=== PATIENT | male | born 1955 | race Caucasian/White ===

== ENCOUNTER → 2016-12-02 | Outpatient (CLI) | payer OTHER ==
--- NOTE | 2016-12-02 16:16 | CT ---
EXAMINATION TYPE: CT iac w con DATE OF EXAM: 12/02/2016 3:55 PM COMPARISON: NONE HISTORY: Right ear drainage x [address] DLP: 142.70 mGycm Automated exposure control for dose reduction was used. CONTRAST: CT scan of the IACs is performed with IV Contrast, patient injected with 100 mL of Omnipaque 300. FINDINGS: The middle ear ossicles demonstrate evidence of surrounding soft tissue density which may reflect cholesteatoma left greater than right. Ossicular chains appear to be grossly intact bilateral ly. Soft tissue extends into the attic on the left and to a much lesser extent on the right. The scut um is preserved bilaterally. There is thickening of the bilateral tympanic membranes right greater th an left. Tubelike structure is noted on the right. Correlate for tube insertion. There is near compl ete opacification of the left-sided mastoid air cells compatible with a moderate chronic mastoiditis with bone resorption noted. Right-sided mastoid air cells are poorly pneumatized with mild opacificat ion seen and no evidence for osseous destruction. The cochlea and the semicircular canals are symmetr ic and unremarkable. Vestibular aqueduct and internal carotid canal appear unremarkable. Temporoman dibular joints are maintained bilaterally. IMPRESSION: 1. Findings felt to reflect bilateral cholesteatoma left greater than right. 2. Thickening of the tympanic membranes right greater than left with tubelike structure. Correlate cl inically. 3. Chronic mastoiditis left much greater than right.
== END | disposition home or self-care (01) ==
LOC: RADCTMAIN 15:22
PROVIDERS: ATTEND Nurse Practitioner Family
DX: H70.13 Chronic mastoiditis, bilateral (principal)
CPT/HCPCS: 70481; Q9967

== ENCOUNTER 2025-01-05 21:10 | Emergency (ER) | payer MEDICARE, OTHER ==
[2025-01-05 21:20] VITALS: TEMP 97.7
--- NOTE | 2025-01-05 21:32 | ED ---
Abdominal Pain HPI - General Chief Complaint: Abdominal Pain Stated Complaint: abd pain Time Seen by Provider: 01/05/25 21:28 Source: patient, RN notes reviewed, old records reviewed Mode of arrival: ambulatory Limitations: no limitations - History of Present Illness Initial Comments: This is a 69-year-old female with 4 hours of sudden onset abdominal pain suprapubic diffuse abdominal pain across the anterior abdomen generalized tenderness patient cannot really say comfortable feels like his abdomen is distended and tight. No history of abdominal surgery positive colonoscopy without significant abnormal findings. Patient has not had a bowel movement since pain started no nausea vomiting, initially felt sweaty but without fever MD Complaint: abdominal pain -: hour(s) (4) Location: periumbilical, suprapubic Radiation: suprapubic Migration to: suprapubic Severity: severe Quality: cramping, aching, fullness Consistency: constant, intermittent Worsens With: nothing Associated Symptoms: nausea, other (0) Treatments Prior to Arrival: other (0) - Related Data Allergies Allergy/AdvReac Type Severity Reaction Status Date / Time No Known Allergies Allergy Verified 01/05/25 21:19 Review of Systems ROS Statement: Those systems with pertinent positive or pertinent negative responses have been documented in the HPI. ROS Other: All systems not noted in ROS Statement are negative. Past Medical History Past Medical History: No Reported History History of Any Multi-Drug Resistant Organisms: None Reported Past Surgical History: Orthopedic Surgery Past Psychological History: No Psychological Hx Reported Smoking Status: Never smoker Past Alcohol Use History: Occasional Past Drug Use History: Marijuana General Exam Limitations: no limitations General appearance: alert, in no apparent distress Head exam: Present: atraumatic, normocephalic, normal inspection Eye exam: Present: normal appearance, PERRL, EOMI. Absent: scleral icterus, conjunctival injection, periorbital swelling ENT exam: Present: normal exam, mucous membranes moist Neck exam: Present: normal inspection. Absent: tenderness, meningismus, lymphadenopathy Respiratory exam: Present: normal lung sounds bilaterally. Absent: respiratory distress, wheezes, rales, rhonchi, stridor Cardiovascular Exam: Present: regular rate, normal rhythm, normal heart sounds. Absent: systolic murmur, diastolic murmur, rubs, gallop, clicks GI/Abdominal exam: Present: distended, tenderness, guarding, normal bowel sounds. Absent: rebound, rigid Extremities exam: Present: normal inspection, full ROM, normal capillary refill. Absent: tenderness, pedal edema, joint swelling, calf tenderness Back exam: Present: normal inspection Neurological exam: Present: alert, oriented X3, CN II-XII intact Psychiatric exam: Present: normal affect, normal mood Skin exam: Present: warm, dry, intact, normal color. Absent: rash Course Vital Signs 01/05/25 01/06/25 21:16 00:30 Temperature 97.7 F Pulse Rate 86 66 Respiratory 18 16 Rate Blood Pressure 134/78 127/79 O2 Sat by Pulse 98 95 Oximetry - Reevaluation(s) Reevaluation #1: 01/05/25 21:53 Medical records reviewed Prior ER visits for no abdominal pain no significant abdominal surgery history Reevaluation #2: 01/06/25 01:02 Patient symptoms improved here in the ER Reevaluation #3: 01/06/25 01:02 Patient informed of results questions answered Reevaluation #4: Was pt. sent in by a medical professional or institution (, PA, CONCRETE BUILDINGS ASSEMBLER, urgent care, hospital, or halfway...) When possible be specific @ -no Did you speak to anyone other than the patient for history (EMS, parent, family, police, friend...)? What history was obtained from this source @ -no Did you review nursing and triage notes (agree or disagree)? Why? @ -agree Are old charts reviewed (outside hosp., previous admission, EMS record, old EKG, old radiological studies, urgent care reports/EKG's, halfway records)? Report findings @ -yes Differential Diagnosis (chest pain, altered mental status, abdominal pain women, abdominal pain men, vaginal bleeding, weakness, fever, dyspnea, syncope, headache, dizziness, GI bleed, back pain, seizure, CVA, palpatations, mental health, musculoskeletal)? @ -prior EKG interpreted by me (3pts min.). @ -yes X-rays interpreted by me (1pt min.). @ -yes negative for acute disease CT interpreted by me (1pt min.). @ -no U/S interpreted by me (1pt. min.). @ -no What testing was considered but not performed or refused? (CT, X-rays, U/S, labs)? Why? @ -none What meds were considered but not given or refused? Why? @ -none Did you discuss the management of the patient with other professionals (professionals i.e. , PA, CONCRETE BUILDINGS ASSEMBLER, lab, RT, psych nurse, social welfare administrator, casting machine control board operator, teacher, assurance officer, family caseworker)? Give summary @ -no Was smoking cessation discussed for >3mins.? @ -no Was critical care preformed (if so, how long)? @ -no Were there social determinants of health that impacted care today? How? (Homelessness, low income, unemployed, alcoholism, drug addiction, trans portation, low edu. Level, literacy, decrease access to med. care, fdc, rehab)? @ -none Was there de-escalation of care discussed even if they declined (Discuss DNR or withdrawal of care, Hospice)? DNR status @ -no What co-morbidities impacted this encounter? (DM, HTN, Smoking, COPD, CAD, Cancer, CVA, ARF, Chemo, Hep., AIDS, mental health diagnosis, sleep apnea, morbid obesity)? @ -none Was patient admitted / discharged? Hospital course, mention meds given and route, prescriptions, significant lab abnormalities, going to OR and other pertinent info. @ - Undiagnosed new problem with uncertain prognosis? @ -no Drug Therapy requiring intensive monitoring for toxicity (Heparin, Nitro, Ins ulin, Cardizem)? @ -no Were any procedures done? @ -no Diagnosis/symptom? @ - Acute, or Chronic, or Acute on Chronic? @ -Acute Uncomplicated (without systemic symptoms) or Complicated (systemic symptoms)? @ -Complicated Side effects of treatment? @ -no Exacerbation, Progression, or Severe Exacerbation? @ -exacerbation Poses a threat to life or bodily function? How? (Chest pain, USA, MT, pneumonia, PE, COPD, DKA, ARF, appy, cholecystitis, CVA, Diverticulitis, Homicidal, Suicidal, threat to staff... and all critical care pts) @ -yes Reevaluation #5: Differential Abdominal Pain Men: Appendicitis, cholecystitis, diverticulosis, ischemic bowel, pancreatitis, hep atitis, UTI, gastroenteritis, AAA, incarcerated hernia, bowel obstruction, constipation, inflammatory bowel, hepatitis, peptic ulcer disease, splenic infarction, perforated viscus, testicular torsion, this is not meant to be an all-inclusive list Medical Decision Making - Medical Decision Making 69 male to the ED co AYSE aviles found to have colitis, for discharge home will t tolerate liquid diet pain control and nausea medications and can be discharged - Lab Data Result diagrams: 01/05/25 22:18 01/05/25 22:18 Lab Results 01/05/25 01/05/25 01/05/25 Range/Units 22:18 22:18 22:18 WBC 19.9 H (3.8-10.6) k/uL RBC 4.96 (4.30-5.90) m/uL Hgb 14.4 (13.0-17.5) gm/dL Hct 46.6 (39.0-53.0) % MCV 93.9 (80.0-100.0) fL MCH 29.0 (25.0-35.0) pg MCHC 30.9 L (31.0-37.0) g/dL RDW 13.4 (11.5-15.5) % Plt Count 460 H (150-450) k/uL MPV 7.9 Neutrophils % 92 % Lymphocytes % 4 % Monocytes % 2 % Eosinophils % 1 % Basophils % 0 % Neutrophils # 18.3 H (1.3-7.7) k/uL Lymphocytes # 0.8 L (1.0-4.8) k/uL Monocytes # 0.5 (0-1.0) k/uL Eosinophils # 0.1 (0-0.7) k/uL Basophils # 0.1 (0-0.2) k/uL PT 11.1 (10.0-12.5) sec INR 1.0 (<1.2) APTT 24.2 (22.0-30.0) sec Sodium 137 (137-145) mmol/L Potassium 4.5 (3.5-5.1) mmol/L Chloride 103 (98-107) mmol/L Carbon Dioxide 23 (22-30) mmol/L Anion Gap 11 mmol/L BUN 27 H (9-20) mg/dL Creatinine 0.92 (0.66-1.25) mg/dL Est GFR (CKD-EPI)AfAm >90 (>60 ml/min/1.73 sqM) Est GFR (CKD-EPI)NonAf 84 (>60 ml/min/1.73 sqM) Glucose 183 H (74-99) mg/dL Plasma Lactic Acid Devin (0.7-2.0) mmol/L Calcium 9.5 (8.4-10.2) mg/dL Phosphorus 4.1 (2.5-4.5) mg/dL Magnesium 1.9 (1.6-2.3) mg/dL Total Bilirubin 0.5 (0.2-1.3) mg/dL AST 22 (17-59) U/L ALT 19 (4-49) U/L Alkaline Phosphatase 76 (38-126) U/L Troponin I (0.000-0.034) ng/mL Total Protein 7.4 (6.3-8.2) g/dL Albumin 4.4 (3.5-5.0) g/dL Amylase 62 (30-110) U/L Lipase 62 (23-300) U/L 01/05/25 01/05/25 Range/Units 22:18 22:18 WBC (3.8-10.6) k/uL RBC (4.30-5.90) m/uL Hgb (13.0-17.5) gm/dL Hct (39.0-53.0) % MCV (80.0-100.0) fL MCH (25.0-35.0) pg MCHC (31.0-37.0) g/dL RDW (11.5-15.5) % Plt Count (150-450) k/uL MPV Neutrophils % % Lymphocytes % % Monocytes % % Eosinophils % % Basophils % % Neutrophils # (1.3-7.7) k/uL Lymphocytes # (1.0-4.8) k/uL Monocytes # (0-1.0) k/uL Eosinophils # (0-0.7) k/uL Basophils # (0-0.2) k/uL PT (10.0-12.5) sec INR (<1.2) APTT (22.0-30.0) sec Sodium (137-145) mmol/L Potassium (3.5-5.1) mmol/L Chloride (98-107) mmol/L Carbon Dioxide (22-30) mmol/L Anion Gap mmol/L BUN (9-20) mg/dL Creatinine (0.66-1.25) mg/dL Est GFR (CKD-EPI)AfAm (>60 ml/min/1.73 sqM) Est GFR (CKD-EPI)NonAf (>60 ml/min/1.73 sqM) Glucose (74-99) mg/dL Plasma Lactic Acid Devin 1.8 (0.7-2.0) mmol/L Calcium (8.4-10.2) mg/dL Phosphorus (2.5-4.5) mg/dL Magnesium (1.6-2.3) mg/dL Total Bilirubin (0.2-1.3) mg/dL AST (17-59) U/L ALT (4-49) U/L Alkaline Phosphatase (38-126) U/L Troponin I <0.012 (0.000-0.034) ng/mL Total Protein (6.3-8.2) g/dL Albumin (3.5-5.0) g/dL Amylase (30-110) U/L Lipase (23-300) U/L - Radiology Data Radiology results: report reviewed (CT abd pelvis positive for colitis), image reviewed Disposition Clinical Impression: Abdominal pain, Colitis Disposition: HOME SELF-CARE Condition: Good Instructions (If sedation given, give patient instructions): Colitis (ED) Is patient prescribed a controlled substance at d/c from ED?: No Referrals: Loretta Lewis, PAC [Family Provider] - 1-2 days Time of Disposition: 01:00
[2025-01-05] MEDS: SODIUM CHLORIDE 0.9% 1,000 ML IV ONE (22:20)
[2025-01-05] MEDS: HYDROmorphone 1 MG/ML 1 ML SYRINGE IVP STA (22:21)
[2025-01-05] MEDS: ONDANSETRON 4 MG/2 ML VIAL IVP STA (22:21)
[2025-01-05 22:51] LABS: Basophils # (A) 0.1 k/uL (0-0.2); Basophils % (A) 0 %; Eosinophils # (A) 0.1 k/uL (0-0.7); Eosinophils % (A) 1 %; HCT 46.6 % (39.0-53.0); HGB 14.4 gm/dL (13.0-17.5); Lymphocytes # (A) 0.8 k/uL (1.0-4.8); Lymphocytes % (A) 4 %; MCHC 30.9 g/dL (31.0-37.0); MCV 93.9 fL (80.0-100.0); Mean Platelet Volume 7.9; Monocytes # (A) 0.5 k/uL (0-1.0); Monocytes % (A) 2 %; Neutrophils # (A) 18.3 k/uL (1.3-7.7); Neutrophils % (A) 92 %; Platelet Count 460 k/uL (150-450); RBC 4.96 m/uL (4.30-5.90); RDW 13.4 % (11.5-15.5); WBC 19.9 k/uL (3.8-10.6)
[2025-01-05 23:09] LABS: Partial Thromboplastin Time 24.2 sec (22.0-30.0); Prothrombin Time 11.1 sec (10.0-12.5)
[2025-01-05 23:12] LABS: ALT 19 U/L (4-49); AST 22 U/L (17-59); African American GFR (CKD) >90 (>60 ml/min/1.73 sqM); Albumin 4.4 g/dL (3.5-5.0); Alkaline Phosphatase 76 U/L (38-126); Amylase 62 U/L (30-110); Anion Gap 11 mmol/L; Blood Urea Nitrogen 27 mg/dL (9-20); Calcium 9.5 mg/dL (8.4-10.2); Carbon Dioxide 23 mmol/L (22-30); Chloride 103 mmol/L (98-107); Glucose 183 mg/dL (74-99); Lipase 62 U/L (23-300); Magnesium 1.9 mg/dL (1.6-2.3); Non-African American GFR(CKD) 84 (>60 ml/min/1.73 sqM); Phosphorus 4.1 mg/dL (2.5-4.5); Potassium 4.5 mmol/L (3.5-5.1); Sodium 137 mmol/L (137-145); Total Bilirubin 0.5 mg/dL (0.2-1.3); Total Protein 7.4 g/dL (6.3-8.2)
[2025-01-06] MEDS: HYDROmorphone 1 MG/ML 1 ML SYRINGE IVP STA (00:33)
--- NOTE | 2025-01-06 00:45 | CT ---
EXAM: CT Abdomen and Pelvis With Intravenous Contrast CLINICAL HISTORY: ITS.REASON CT Reason: pain TECHNIQUE: Axial computed tomography images of the abdomen and pelvis with intravenous contrast. CTDI is 13.2 mGy and DLP is 654.1 mGy-cm. This CT exam was performed using one or more of the following dose reduction techniques: automated exposure control, adjustment of the mA and/or kV according to patient size, and/or use of iterative reconstruction technique. COMPARISON: No relevant prior studies available. FINDINGS: Lung bases: Atelectasis at the lung bases. Mediastinum: Small hiatal hernia. ABDOMEN: Liver: Unremarkable. No mass. Gallbladder and bile ducts: Unremarkable. No calcified stones. No ductal dilation. Pancreas: Unremarkable. No mass. No ductal dilation. Spleen: Unremarkable. No splenomegaly. Adrenals: Unremarkable. No mass. Kidneys and ureters: Unremarkable. No solid mass. No hydronephrosis. Stomach and bowel: Wall thickening of the descending colon and proximal sigmoid colon, with pericolonic fat stranding, consistent with colitis. No obstruction. PELVIS: Appendix: No findings to suggest acute appendicitis. Bladder: Unremarkable. No mass. Reproductive: Small bilateral testicular hydroceles. ABDOMEN and PELVIS: Intraperitoneal space: Unremarkable. No free air. No significant fluid collection. Bones/joints: Degenerative changes of the spine. No acute fracture. No dislocation. Soft tissues: Unremarkable. Vasculature: Atherosclerotic changes of the aorta. No abdominal aortic aneurysm. Lymph nodes: Unremarkable. No enlarged lymph nodes. IMPRESSION: Wall thickening of the descending colon and proximal sigmoid colon, with pericolonic fat stranding, consistent with colitis.
[2025-01-06 01:04] LABS: Appearance,Urine Clear (Clear); Bacteria,Urine Rare /hpf; Bilirubin,Urine Negative (Negative); Blood,Urine Negative (Negative); Budding Yeast,Urine Rare /hpf; Color,Urine Yellow; Glucose,Urine (UA) Negative (Negative); Ketones,Urine Negative (Negative); Leukocyte Esterase,Urine Small (Negative); Nitrite,Urine Negative (Negative); Protein,Urine Negative (Negative); RBC,Urine 2 /hpf (0-5); Squamous Epithelial Cell,Urine <1 /hpf (0-4); Urobilinogen,Urine <2.0 mg/dL (<2.0); WBC,Urine 3 /hpf (0-5)
[2025-01-06] MEDS: ONDANSETRON 4 MG ODT STARTER PACK 2 TAB BTL PO STA (01:12)
[2025-01-06] MEDS: ONDANSETRON 4 MG/2 ML VIAL IVP STA (01:12)
[2025-01-06] MEDS: traMADol 50 MG STARTER PACK 3 TAB BTL PO STA (01:12)
[2025-01-06 01:23] VITALS: BP 152/94; PULSE 93; RESP 19
[2025-01-06 01:28] LABS: Specific Gravity,Urine >1.050 (1.001-1.035)
== END 2025-01-06 01:23 | disposition home or self-care (01) ==
LOC: EC 21:10
DX: K52.9 Noninfective gastroenteritis and colitis, unspecified (principal)
CPT/HCPCS: 80053; 82150; 83605; 83690; 83735; 84100; 84484; 85025; 85610; 85730; 74177; 99284; 96374; 96375; 96361 ×2; 96376 ×2; J2405; J1171; Q9967; 36415; 81001

== ENCOUNTER → 2025-02-20 | Outpatient (CLI) | payer MEDICARE ==
[2025-02-20 11:27] LABS: African American GFR (CKD) >90 (>60 ml/min/1.73 sqM); Blood Urea Nitrogen 16 mg/dL (9-20); Non-African American GFR(CKD) 89 (>60 ml/min/1.73 sqM)
--- NOTE | 2025-02-20 12:47 | CT ---
EXAMINATION TYPE: CT abdomen pelvis w con CT DLP: 436.60 mGycm, Automated exposure control for dose reduction was used. DATE OF EXAM: 02/20/2025 12:36 PM COMPARISON: CT abdomen and pelvis 01/05/2025 CLINICAL INDICATION:Male, 69 years old with history of R10.11 RUQ pain; RUQ pain hx of colitis. TECHNIQUE: Standard CT of the abdomen and pelvis following the administration of 100 cc of Isovue 3 00 IV contrast material and oral contrast. Coronal and sagittal reformats were performed. FINDINGS: LOWER CHEST: Posterior dependent subsegmental atelectasis is noted. Right gynecomastia with possible partially visualized left gynecomastia. ABDOMEN LIVER: Unremarkable GALLBLADDER AND BILE DUCTS: Unremarkable. PANCREAS: Unremarkable. SPLEEN: Unremarkable. ADRENAL GLANDS: Unremarkable. KIDNEYS AND URETERS: No evidence of hydronephrosis or renal calculus. The kidneys enhance symmetrical ly. Couple of left renal simple cysts with largest measuring up to 1.3 cm. No follow-up recommended. Contrast is demonstrated within both collecting systems and proximal ureters on the delayed phase. PELVIS BLADDER: Unremarkable REPRODUCTIVE: Prostate is enlarged in size measuring 5.2 cm in transverse dimension. ABDOMEN & PELVIS STOMACH AND BOWEL: Small hiatal hernia, duodenum is unremarkable. Sigmoid diverticulosis without evid ence for acute diverticulitis. Circumferential long segment wall thickening of the descending colon w ith surrounding fat stranding. The amount of inflammatory changes and a length of involvement is not as significant from prior CT. Moderate amount of stool is present within the colon upstream of the co litis. Enteric contrast reaches the ascending colon. The appendix is not definitively identified. No pneumatosis of the bowel identified. No evidence of bowel obstruction. PERITONEUM: No evidence of pneumoperitoneum or free fluid. VASCULATURE: No evidence of aortic aneurysm. MUSCULOSKELETAL: No acute osseous abnormalities LYMPH NODES: No evidence for lymphadenopathy. SOFT TISSUE/ABDOMINAL WALL: Unremarkable IMPRESSION: 1. Nonspecific acute colitis involving the descending colon likely from an infectious/inflammatory p rocess. Resultant moderate upstream colonic stool burden. 2. Small hiatal hernia. 3. Prostatomegaly. [facility], , 02/20/2025 12:45 PM
== END | disposition home or self-care (01) ==
LOC: RADCTMAIN 10:28
PROVIDERS: ATTEND Family Medicine
DX: K52.9 Noninfective gastroenteritis and colitis, unspecified (principal); K44.9 Diaphragmatic hernia without obstruction or gangrene; N40.0 Benign prostatic hyperplasia without lower urinary tract symptoms
CPT/HCPCS: 82565; 84520; 74177; 36415; Q9967

== ENCOUNTER 2025-05-14 12:07 | Day surgery (SDC) | payer MEDICARE ==
[2025-05-13 14:10] VITALS: BMI 21.6
[2025-05-14] MEDS: IV FLUID CONTINUATION 1,000 ML IV ONE (12:43)
[2025-05-14] MEDS: LACTATED RINGERS 1,000 ML IV SCH (12:55)
[2025-05-14 12:59] VITALS: RESP 16; TEMP 97.2
[2025-05-14] MEDS ORDERED: PROPOFOL 10 MG/ML 20 ML VIAL IV ONE (13:08)
--- NOTE | 2025-05-14 13:35 | P.PCN ---
Date of Procedure: 05/14/25 Procedure(s) Performed: BRIEF HISTORY: Patient is a 69-year-old pleasant white male scheduled for an elective colonoscopy as a part of evaluation of recent episode of acute colitis. She was hospitalized in December and January 2025. Presented with severe abdominal pain and CAT scan revealed thickening of the descending colon suspicious for acute colitis. He was treated with antibiotics and discharged home. His symptoms gradually improved. He still continues to have intermittent lower abdominal pain. Patient scheduled for colonoscopy to evaluate for PROCEDURE PERFORMED: Colonoscopy with biopsy. PREOPERATIVE DIAGNOSIS: Intermittent lower abdominal pain and recent episode of acute colitis diagnosed in January 2025. IV sedation per Anesthesia. PROCEDURE: After informed consent was obtained, the patient, was brought into the endoscopy unit. IV sedation was administered by Anesthesia under continuous monitoring. Digital rectal examination was normal. Initially the Olympus CF-160 flexible video colonoscope was then inserted in the rectum, gradually advanced into the distal transverse colon where there was a tight stricture identified. I could not advance the scope through the stricture as the luminal diameter was less than 6 or 7 mm. At this time I removed the scope and a upper endoscopy was passed to the rectum and gradually advanced into the distal transverse colon with a stricture was identified. Despite multiple attempts I was not able to traverse the stricture through the upper scope also. The stricture appeared benign with mild erythema noted and biopsies were done from this area. Mucosa of the descending colon, sigmoid colon, and rectum appeared normal. Scattered left-sided diverticulosis seen. Retroflexion was performed in the rectum and no lesions were seen. The patient tolerated the procedure well. 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 Scope could not not be advanced through the stricture Scattered left-sided diverticulosis RECOMMENDATIONS: Findings of this examination were discussed with the patient as well as his family. He was advised to follow-up with the biopsy results. He will be seen in the office in 1 week. In the meantime he was advised to continue with high-fiber diet and MiraLAX as needed. If he still remains symptomatic he may need surgical intervention of the transverse colon stricture..
[2025-05-14] MEDS: ALBUTEROL NEBULIZED 2.5 MG/3 ML INHALATION STA (13:46)
[2025-05-14 13:58] VITALS: BP 105/70; PULSE 65
== END 2025-05-14 14:18 | disposition home or self-care (01) ==
LOC: ORWHC2ENDO 12:07
PROVIDERS: ATTEND Internal Medicine Gastroenterology
DX: K52.9 Noninfective gastroenteritis and colitis, unspecified (principal); K63.3 Ulcer of intestine; K57.30 Diverticulosis of large intestine without perforation or abscess without bleeding; K56.699 Other intestinal obstruction unspecified as to partial versus complete obstruction
CPT/HCPCS: 45380; 88305